=== PATIENT | female | born 1980 | race Caucasian/White ===

== ENCOUNTER 2021-06-28 05:30 | Day surgery (SDC) | payer OTHER ==
[~2021-06-28 05:30] MED LIST: ADULT LOW DOSE81 M1 PO; LOVENOX40 MG/0.4 SUBCUTANEO
== END 2021-06-28 15:05 | disposition home or self-care (01) ==
LOC: CIR.AMB 05:30
PROVIDERS: ATTEND Obstetrics & Gynecology Maternal & Fetal Medicine
DX: O34.32 Maternal care for cervical incompetence, second trimester (principal); Z3A.14 14 weeks gestation of pregnancy; Z20.822 Contact with and (suspected) exposure to COVID-19

== ENCOUNTER 2021-11-28 07:33 | Inpatient (IN) | payer OTHER ==
[~2021-11-28] VITALS: Ht 167.6 cm; Wt 99.3 kg
[2021-11-28] MEDS ORDERED: TRANDATE300 MG PO (08:16)
[2021-11-28] MEDS ORDERED: ATABEX DHA 200200 MG PO (08:16)
[2021-11-28] MEDS ORDERED: NIFEDIPINE20 MG PO (08:17)
[2021-12-06] MEDS ORDERED: NIFEDIPINE ER30 M1 (09:51)
[2021-12-06] MEDS ORDERED: CLONIDINE HCL0.1 MG (09:51)
[2021-12-09] MEDS ORDERED: OXYC1TAB9 PO (10:07)
== END 2021-12-09 12:19 | disposition home or self-care (01) | DRG 785 ==
LOC: O/R 12-06 06:00 → OB/GYN 12-06 07:32
PROVIDERS: ADMIT Obstetrics & Gynecology Maternal & Fetal Medicine; ATTEND Obstetrics & Gynecology Maternal & Fetal Medicine
PROC: 0UB70ZZ Excision of Bilateral Fallopian Tubes, Open Approach (ICD-10-PCS; 2021-12-06)
PROC: 4A1HXCZ Monitoring of Products of Conception, Cardiac Rate, External Approach (ICD-10-PCS; 2021-12-06)
PROC: 10D00Z1 Extraction of Products of Conception, Low, Open Approach (ICD-10-PCS; principal; 2021-12-06 13:15)
DX: O32.1XX0 Maternal care for breech presentation, not applicable or unspecified (principal); Z30.2 Encounter for sterilization; Z37.0 Single live birth; Z3A.37 37 weeks gestation of pregnancy; Z20.822 Contact with and (suspected) exposure to COVID-19